=== PATIENT | male | born 1935 | race Caucasian/White ===

== ENCOUNTER 2018-01-20 16:49 | Inpatient (IN) ==
[2018-01-20] MEDS ORDERED: *HR* Dextrose 50 % in Water (Syg) 50 ML SYRINGE IVP PRN (19:52)
[2018-01-20] MEDS ORDERED: Dextrose Gel 15 GM PO PRN ×2 (19:52)
[2018-01-20] MEDS ORDERED: D5% in Water 1,000 ML IVC PRN (19:52)
[2018-01-20] MEDS: Insulin LISPRO 300 UNITS/3 ML VIAL SQ SCH (22:23)
[2018-01-21 07:20] LABS: Calcium 8.6 mg/dL (8.6-10.3); Potassium 4.9 mEq/L (3.5-5.1)
[2018-01-21 08:04] LABS: Basophils % 0.3 %; Eosinophils # 0.2 K/mcL (0.0-0.6); Eosinophils % 4.2 %; Hematocrit 27.2 % (37.5-50.1); Hemoglobin 8.6 g/dL (12.9-16.9); Immature Granulocytes % 0.6 % (0-4); Lymphocytes # 0.3 K/mcL (0.6-4.6); Lymphocytes % 7.6 %; Mean Corpuscular HGB Conc 31.6 g/dL (31.6-35.5); Mean Corpuscular Hemoglobin 30.6 pg (28.0-33.3); Mean Corpuscular Volume 96.8 fL (83.0-100.0); Mean Platelet Volume 11.4 fL (9.4-12.4); Monocytes # 0.3 K/mcL (0.0-1.3); Monocytes % 8.1 %; Platelet Count 138 K/mcL (140-400); Red Blood Count 2.81 M/mcL (4.19-5.50); Red Cell Distribution Width 16.2 % (11.5-14.5); Segmented Neutrophils % 79.2 %
[2018-01-21 08:05] LABS: INR 1.1; Prothrombin Time 12.1 Seconds (9.4-12.1)
[2018-01-21 08:07] LABS: Activated Partial Thrombo Time 28.9 Seconds (26.0-36.0)
[2018-01-21] MEDS: Insulin LISPRO 300 UNITS/3 ML VIAL SQ SCH ×4 (09:06→20:12)
[2018-01-21 09:09] LABS: Neutrophils # 2.9 K/mcL (1.6-8.9)
[2018-01-21] MEDS: Vitamin B Complex/Vit C/Vit E 1 EACH TABLET PO SCH (09:22)
[2018-01-21] MEDS: *HR* Amiodarone 200 MG TABLET PO SCH (09:22)
[2018-01-21] MEDS: Bumetanide 1 MG TABLET PO SCH ×2 (09:22→18:28)
[2018-01-21] MEDS: Diltiazem CD (24hr) 240 MG CAPSULE PO SCH (09:22)
[2018-01-21] MEDS: Folic Acid 1 MG TABLET PO SCH (09:22)
--- NOTE | 2018-01-21 13:41 | Internal Med History&Physical ---
Date of Encounter: 01/21/18 Time of Encounter: 13:21 Assessment and Plan (1) Hypertension Current visit: Yes Status: Chronic Stable and controlled with current medication. Monitor blood pressure. Qualifiers: Hypertension type: essential hypertension Qualified Code(s): I10 - Essential (primary) hypertension (2) Atrial fibrillation Current visit: Yes Status: Chronic Regular rate and rhythm. Monitor Qualifiers: Atrial fibrillation type: unspecified Qualified Code(s): I48.91 - Unspecified atrial fibrillation (3) CKD (chronic kidney disease) stage 4, GFR 15-29 ml/min Current visit: Yes Status: Chronic Creatinine 2.07. Will monitor labs (4) Acute blood loss anemia Current visit: Yes Status: Acute Hemoglobin 8.6 today. Recently I received last transfusion on January 14. Patient is symptomatic. Will transfuse one more unit today. (5) Systolic heart failure Current visit: No Status: Acute Monitor for decompensation. Qualifiers: Heart failure chronicity: acute Qualified Code(s): I50.21 - Acute systolic (congestive) heart failure Internal Medicine - H&P: HPI Admitted From: Intrahospital Transfer Plans for Post Hospital Care: Home History of present illness: Mr. Engle is a 82 year old male from [facility] after an admission for a G.I. bleed. Patient had an irregular heart rhythm without pulse shortly after arrival in ICU. Patient was coded in cardiac arrest at 3 different episodes. Patient given 6 unit of blood. Was also treated with antibiotics for Pseudomonas pneumonia echocardiogram shows ejection fraction a 50% with some mild LV systolic dysfunction. past medical history includes: NSTEMI, acute decompensated heart failure, see KD stage for work, hypertension, respiratory failure, acute coronary syndrome, a fib, systolic heart failure, systemic inflammatory response syndrome, diabetes type II, BPH, urinary retention, pneumonia, ischemic cardiomyopathy, COPD, cardiac arrest, G.I. bleed , CAD, metabolic alkalosis, arrhythmia, renal mass, duodenal ulcer. Completed [place] obsessive pain. Cardiac arrest is reported as likely secondary to severe blood loss or hypokalemia. Will be continue twice today. Transfuse last unit of blood was given on . Patient colonoscopy which showed 20 mm polyp in sigmoid colon. Patient was recommended to the [facility] on Plavix for at least one month. Will follow up with cardiology. Currently complaining of increased fatigue slight shortness of breath. On oxygen per nasal cannula at 100% O2. Hemoglobin 8.6 today. Patient here for overall deconditioning for physical therapy and medical management. To follow up with cardiology. To follow up with Dr Zabala, urology in 2-3 weeks for possible voiding trial. has karan. To follow up with Rafael[facility] durbin urology in 2 weeks and repeat EGD in 4 weeks. Past Med Surg Social Fam HX - Past Medical History Medical history: arthritis, atrial fibrillation, cancer, cardiomyopathy, CHF, COPD, coronary artery disease, diabetes, GERD, GI bleed, hyperlipidemia, hypertension, myocardial infarction, peripheral artery disease Psychiatric history: anxiety - Past Surgical History Surgical History: angioplasty/stent, orthopedic, other, other - Social History Smoking Status: Former smoker Smokeless Tobacco Status: No Alcohol use: none Drug use: none - Family History Mother Living Status: Hx Family Cardiac Disorders: Yes Father Adopted: Agar: jarocho engle Family Member Ethnicity: Non- Living Status: Age at : 86 Cause of : CHF Hx Family Cardiac Disorders: Yes Hx Family Respiratory Disorders: No Hx Family Cancer: No Hx Family GI Disorders: Yes Hx Family Genitourinary Disorders: No Hx Family Endocrine Disorder: Yes Hx Family Musculoskeletal Disorders: No Hx Family Neuromuscular Disorders: No Hx Family Neurologic Disorders: No Hx Family HEENT Disorders: No Hx Family Autoimmune Disorders: No Hx Family Reproductive Disorders: No Hx Family Psychosocial Disorders: No Hx Family Medical Disorders: No Internal Medicine - H&P: Meds Albuterol Neb [Proventil Neb] 2.5 mg IH Q4-6H PRN 12/31/17 [History] Albuterol Sulfate [Proair Hfa] 1 puff IH DAILY PRN 12/31/17 [History] Atorvastatin [Lipitor] 40 mg PO HS 12/31/17 [History] Bisacodyl [Woman's Laxative] 5 mg PO DAILY PRN 12/31/17 [History] Calcium Carbonate [Calcium] 1,000 mg PO Q4H PRN 12/31/17 [History] Cholecalciferol (Vitamin D3) [Vitamin D3] 50,000 unit PO TH 12/31/17 [History] Docusate [Colace] 200 mg PO BID PRN 12/31/17 [History] Loperamide [Imodium] 2 mg PO Q6H PRN 12/31/17 [History] Metoprolol Tartrate [Lopressor] 50 mg PO BID 12/31/17 [History] Tamsulosin [Flomax] 0.4 mg PO DAILY 12/31/17 [History] Vitamin B Complex [B Complex] 1 tab PO DAILY 12/31/17 [History] Zolpidem [Ambien] 5 mg PO HS 12/31/17 [History] Bumetanide [Bumex] 1 mg PO BIDDIURETIC #60 tablet 01/02/18 [Rx] Amiodarone [Cordarone] 200 mg PO DAILY #30 tablet 01/20/18 [Rx] Diltiazem CD (24hr) [Cardizem CD] 240 mg PO DAILY #30 cap.er.24h 01/20/18 [Rx] Folic Acid 1 mg PO DAILY #30 tablet 01/20/18 [Rx] GuaiFENesin ER [Mucinex] 600 mg PO BID #60 tbbp.12hr 01/20/18 [Rx] Pantoprazole Sodium 40 mg PO BID #60 tablet.dr 01/20/18 [Rx] Sucralfate [Carafate] 1 gm PO ACHS #120 udc 01/20/18 [Rx] 3 Allergy/AdvReac Type Severity Reaction Status Date / Time Beta-Blockers AdvReac See Verified 01/06/18 15:36 (Beta-Adrenergic Bloc Comments codeine AdvReac Nausea Verified 01/06/18 15:36 All Systems PM: A 10-system review of systems was performed and is negative for pertinent findings except as documented above in the HPI. - Constitutional Constitutional: fatigue, no chills, no fever(s), no night sweats - EENT Eyes: no change in vision, no discharge, no pain, no photophobia Ears: no ear discharge, no ear pain, no tinnitus Nose, mouth and throat: no dysphagia, no nasal discharge, no neck pain, no sore throat - Cardiovascular Cardiovascular ROS IM: edema, no chest pain, no diaphoresis, no dyspnea, no lightheadedness, no palpitations, no syncope - Respiratory Respiratory: no cough, no dyspnea, no wheezing, no excessive phlegm production Additional comments: SOB with exertion. - Gastrointestinal Gastrointestinal: no abdominal pain, no diarrhea, no hematemesis, no hematochezia, no melena, no nausea, no vomiting - Musculoskeletal Musculoskeletal ROS IM: no numbness, no tingling - Integumentary Integumentary IM: no rash, no unusual bruising - Neurological Neurological ROS: no confusion, no convulsions, no focal weakness, no numbness, no tingling, no tremor(s) - Hematologic/Lymphatic Hematologic/Lymphatic: no easy bruising - Constitutional Vitals: Temp Pulse Resp BP Pulse Ox 98.6 F 78 16 99/60 100 01/21/18 11:23 01/21/18 11:23 01/21/18 11:23 01/21/18 11:23 01/21/18 11:23 General appearance: Present: A&O X 3, pleasant, no acute distress, answers questions appropriately - Head Head exam: Present: atraumatic, normocephalic - Eye Eye exam: Present: PERRL, conjuntiva pink, sclera anicteric Pupils: Present: PERRL - Neck Neck exam general surgery: Present: supple, trachea midline. Absent: lymphadenopathy - Respiratory Respiratory exam: Present: CTAB. Absent: accessory muscle use, rales, rhonchi, wheezes - Cardiovascular Cardiovascular exam: Present: RRR, +S1, +S2. Absent: diastolic murmur, gallop, rubs, systolic murmur - GI/Abdominal GI/Abdominal exam: Present: normal bowel sounds, soft, no peritoneal signs. Absent: distended, tenderness - Extremities Exam Extremities exam: Present: warm, radial pulses palpable and symmetrical. Absent : calf tenderness, cyanotic, pedal edema Additional comments: bilat upper extremity edema with weeping on right arm. prakash conn biljeevan LE. - Neurological Exam Neurological exam: Present: CN II-XII intact, oriented X3, no focal deficits. Absent: pronater drift, facial droop, speech deficit - Skin Skin exam: Present: dry, intact Internal Med - H&P Results - Labs CBC & Chem 7: 01/21/18 06:55 01/21/18 06:55 Labs: Short CBC 01/21/18 Range/Units 06:55 WBC 3.6 L (4.3-11.1) K/mcL Hgb 8.6 L (12.9-16.9) g/dL Hct 27.2 L (37.5-50.1) % Plt Count 138 L (140-400) K/mcL Neutrophils # 2.9 (1.6-8.9) K/mcL BMP 01/21/18 06:55 Sodium 136 Potassium 4.9 Chloride 103 Carbon Dioxide 31 H BUN 31 H Creatinine 2.07 H Glucose 97 Calcium 8.6 - VTE Documentation of Mechanical Device: Graduated compression elastic hosiery
[2018-01-21] MEDS ORDERED: Bumetanide 1 MG/4 ML VIAL IVP ONE ×2 (14:02→22:30)
[2018-01-21] MEDS: Albuterol 2.5 MG/3 ML NEBULIZER IH PRN ×3 (15:29→23:36)
[2018-01-21] MEDS ORDERED: 0.9 % Sodium Chloride 250 ML ONE (18:03)
[2018-01-22 07:26] LABS: Eosinophils # 0.1 K/mcL (0.0-0.6); Eosinophils % 3.7 %; Hemoglobin 9.3 g/dL (12.9-16.9); Immature Granulocytes % 0.3 % (0-4); Lymphocytes # 0.4 K/mcL (0.6-4.6); Lymphocytes % 9.5 %; Mean Corpuscular HGB Conc 32.1 g/dL (31.6-35.5); Mean Corpuscular Hemoglobin 30.9 pg (28.0-33.3); Mean Corpuscular Volume 96.3 fL (83.0-100.0); Monocytes # 0.3 K/mcL (0.0-1.3); Monocytes % 8.2 %; Platelet Count 131 K/mcL (140-400); Red Blood Count 3.01 M/mcL (4.19-5.50); Red Cell Distribution Width 15.9 % (11.5-14.5); Segmented Neutrophils % 78.3 %
[2018-01-22 07:47] LABS: Albumin 2.9 g/dL (3.5-5.7); Albumin/Globulin Ratio 1.5 (1.1-2.2); Bilirubin,Total 0.6 mg/dL (0.3-1.0); Calcium 8.5 mg/dL (8.6-10.3); Potassium 4.2 mEq/L (3.5-5.1); Total Protein 4.9 g/dL (6.4-8.9)
[2018-01-22] MEDS: Albuterol 2.5 MG/3 ML NEBULIZER IH PRN (08:26)
[2018-01-22] MEDS: Bumetanide 1 MG TABLET PO SCH ×2 (08:56→18:46)
[2018-01-22] MEDS: *HR* Amiodarone 200 MG TABLET PO SCH (08:56)
[2018-01-22] MEDS: Diltiazem CD (24hr) 240 MG CAPSULE PO SCH (08:57)
[2018-01-22] MEDS: Insulin LISPRO 300 UNITS/3 ML VIAL SQ SCH ×4 (08:57→21:17)
[2018-01-22] MEDS: Folic Acid 1 MG TABLET PO SCH (08:57)
[2018-01-22] MEDS: Vitamin B Complex/Vit C/Vit E 1 EACH TABLET PO SCH (08:57)
--- NOTE | 2018-01-22 17:12 | Internal Med Progress Note ---
Date of Encounter: 01/22/18 Time of Encounter: 15:45 - Assessment and plan (1) NSTEMI (non-ST elevated myocardial infarction) Current Visit: No Status: Acute Assessment and plan: Clinically stable. (2) CKD (chronic kidney disease) Current Visit: No Status: Chronic Assessment and plan: Clinically stable. Qualifiers: Chronic kidney disease stage: stage 4 (severe) Qualified Code(s): N18.4 - Chronic kidney disease, stage 4 (severe) (3) Acute respiratory failure Current Visit: No Status: Resolved Assessment and plan: Seems stable and we are evaluating the possibility of BiPAP at home. For now, he will be continued on BiPAP here, overnight, and when necessary during the day times. Qualifiers: Respiratory failure complication: hypoxia Qualified Code(s): J96.01 - Acute respiratory failure with hypoxia (4) Hypertension Current Visit: Yes Status: Chronic Assessment and plan: Stable with occasional moderate elevations. We will continue to follow. Qualifiers: Hypertension type: essential hypertension Qualified Code(s): I10 - Essential (primary) hypertension (5) Atrial fibrillation Current Visit: Yes Status: Chronic Assessment and plan: Malalignment sinus rhythm. Will follow. Qualifiers: Atrial fibrillation type: paroxysmal Qualified Code(s): I48.0 - Paroxysmal atrial fibrillation (6) Type 2 diabetes mellitus Current Visit: No Status: Chronic Assessment and plan: Apparently due to steroids and/or stress with recent hospitalization as patient and are unaware of diagnosis. Will need education, if he continues to have issues. We will follow and use sliding scale, etc. Qualifiers: Diabetes mellitus senior living insulin use: without senior living use Diabetes mellitus complication status: with unspecified complications Qualified Code(s) : E11.8 - Type 2 diabetes mellitus with unspecified complications (7) DVT prophylaxis Current Visit: No Status: Acute Assessment and plan: Using compression stockings, only, in view of his recent GI bleeding. (8) Gastrointestinal bleeding Current Visit: No Status: Acute Assessment and plan: This is apparently from gastroduodenal duodenal ulcers as well as esophagitis. He is on acid suppression and will be maintained on same. Given his decreased intake and difficulties with swallowing, speech therapy discussed the possibility of using pureed diet which she was pleased to try. Thus, he is on a pureed diet. Hopefully, his dysphagia will improve over time, especially with acid suppression. Qualifiers: GI bleed type/associated pathology: duodenal ulcer Qualified Code(s): K26.4 - Chronic or unspecified duodenal ulcer with hemorrhage - Time Spent With Patient 25 - 35 minutes - Subjective Interval history: Patient is still experiencing shortness of breath and weakness. He is somewhat better than yesterday. He has no lightheadedness or dizziness. He feels like he was worn out with therapy. I informed him and his that we would need to proceed with therapy and that we would not try not to drive him to hard, especially as he regains some improvement in his breathing, etc. I spoke with both of them at length as well as nursing and respiratory therapy about his medication regimen from the standpoint of aerosols, meter dose inhaler , etc. I informed him he was able to have the MDI at the bedside, from my standpoint. We reviewed his catheter and this is to be maintained in place until seen by his urologist in about 2 or 3 weeks. Patient has no complaint of chest discomfort, dyspnea, orthopnea, palpitations, nausea or vomiting, constipation or diarrhea, other changes in bowel habits, difficulty with urination, rash or itching, or other new complaints, except as mentioned above. Review of systems is otherwise unremarkable. - Constitutional Vitals: Temp Pulse Resp BP Pulse Ox 97.5 F L 55 22 100/60 100 01/22/18 11:55 01/22/18 11:55 01/22/18 11:55 01/22/18 11:55 01/22/18 11:55 General appearance: Present: A&O X 3, pleasant, no acute distress, answers questions appropriately Exam: Examination: (Except as mentioned above): General: In no apparent distress. Alert and oriented 3. Nondiaphoretic. Head: Atraumatic and normocephalic. Respiratory: No use of accessory muscles. He still has sonorous rhonchi with increased expiratory phase but not much in the way of wheezing. Normal airflow. Cardiovascular: Regular rate and rhythm without murmur appreciated. Abdomen: Bowel sounds are normal. No hepatosplenomegaly mass or tenderness appreciated. Obese and therefore difficult to palpate deeply. Patient is examined upright in chair and this also limits exam. Extremities: No cyanosis clubbing or edema. Skin: Warm and non-diaphoretic with no new lesions noted. Internal Medicine: Result - Labs CBC & Chem 7: 01/22/18 07:15 01/22/18 07:15 Labs: Short CBC 01/22/18 Range/Units 07:15 WBC 3.8 L (4.3-11.1) K/mcL Hgb 9.3 L (12.9-16.9) g/dL Hct 29.0 L (37.5-50.1) % Plt Count 131 L (140-400) K/mcL Neutrophils # 3.0 (1.6-8.9) K/mcL BMP 01/22/18 07:15 Sodium 137 Potassium 4.2 Chloride 103 Carbon Dioxide 29 BUN 32 H Creatinine 1.95 H Glucose 88 Calcium 8.5 L Liver Function 01/22/18 Range/Units 07:15 Total Bilirubin 0.6 (0.3-1.0) mg/dL AST 18 (13-39) Units/L ALT 24 (7-52) Units/L Alkaline Phosphatase 75 (34-104) Units/L Albumin 2.9 L (3.5-5.7) g/dL - ABG Interpretation ABG results: PT/INR, D-dimer PT 12.1 Seconds (9.4-12.1) 01/21/18 06:55 - VTE Documentation of Mechanical Device: Graduated compression elastic hosiery Consult Discharge Plan - Plan Referrals: Des Gaona, MANAGER BODY [Primary Care Provider] -
[2018-01-22] MEDS: Albuterol 2.5 MG/3 ML NEBULIZER IH SCH (20:19)
[2018-01-23] MEDS: Albuterol 2.5 MG/3 ML NEBULIZER IH SCH ×6 (00:30→22:04)
[2018-01-23] MEDS: Insulin LISPRO 300 UNITS/3 ML VIAL SQ SCH ×4 (08:45→21:38)
[2018-01-23] MEDS: Bumetanide 1 MG TABLET PO SCH ×2 (08:46→17:13)
[2018-01-23] MEDS: Folic Acid 1 MG TABLET PO SCH (08:46)
[2018-01-23] MEDS: *HR* Amiodarone 200 MG TABLET PO SCH (08:46)
[2018-01-23] MEDS: Vitamin B Complex/Vit C/Vit E 1 EACH TABLET PO SCH (08:46)
[2018-01-23] MEDS: Diltiazem CD (24hr) 240 MG CAPSULE PO SCH (08:47)
--- NOTE | 2018-01-23 09:35 | Internal Med Progress Note ---
Date of Encounter: 01/23/18 Time of Encounter: 08:30 - Assessment and plan (1) NSTEMI (non-ST elevated myocardial infarction) Current Visit: No Status: Acute Assessment and plan: Clinically stable. (2) CKD (chronic kidney disease) Current Visit: No Status: Chronic Assessment and plan: Clinically stable to slightly improved. Qualifiers: Chronic kidney disease stage: stage 4 (severe) Qualified Code(s): N18.4 - Chronic kidney disease, stage 4 (severe) (3) Acute respiratory failure Current Visit: No Status: Resolved Assessment and plan: Seems stable and he is symptomatically improved, as above. I discussed with respiratory therapy and we will investigate the ability to get him certified for BiPAP at home, should he need this. Qualifiers: Respiratory failure complication: hypoxia Qualified Code(s): J96.01 - Acute respiratory failure with hypoxia (4) Hypertension Current Visit: Yes Status: Chronic Assessment and plan: He still has occasional moderate elevations. We will continue to follow. Qualifiers: Hypertension type: essential hypertension Qualified Code(s): I10 - Essential (primary) hypertension (5) Atrial fibrillation Current Visit: Yes Status: Chronic Assessment and plan: He is still maintaining sinus rhythm. Will follow. Qualifiers: Atrial fibrillation type: paroxysmal Qualified Code(s): I48.0 - Paroxysmal atrial fibrillation (6) Type 2 diabetes mellitus Current Visit: No Status: Chronic Assessment and plan: Mild and will continue to follow. Apparently, related to steroids.. Qualifiers: Diabetes mellitus longterm insulin use: without laborer drying department use Diabetes mellitus complication status: with unspecified complications Qualified Code(s) : E11.8 - Type 2 diabetes mellitus with unspecified complications (7) DVT prophylaxis Current Visit: No Status: Acute Assessment and plan: Using compression stockings, only, in view of his recent GI bleeding. (8) Gastrointestinal bleeding Current Visit: No Status: Acute Assessment and plan: Due to esophagitis, gastric and duodenal ulcers. Clinically, currently stable on acid suppression. Qualifiers: GI bleed type/associated pathology: duodenal ulcer Qualified Code(s): K26.4 - Chronic or unspecified duodenal ulcer with hemorrhage (9) Anemia Current Visit: Yes Status: Acute Assessment and plan: Secondary to GI blood loss. Currently, stable and we will follow in terms of vital signs, clinically, and serial labs. Qualifiers: Anemia type: other cause Other causes of anemia: acute posthemorrhagic Qualified Code(s): D62 - Acute posthemorrhagic anemia (10) COPD (chronic obstructive pulmonary disease) Current Visit: Yes Status: Acute Assessment and plan: This is not in his current problem list but I have added as he has a history of COPD, home use of BiPAP symptomatically, and does carry COPD exacerbation in his past history in this system. Qualifiers: COPD type: unspecified COPD Qualified Code(s): J44.9 - Chronic obstructive pulmonary disease, unspecified - Time Spent With Patient 25 - 35 minutes - Subjective Interval history: Patient is feeling generally better. He is still dyspneic, especially with exertion, but is pleased with his progress. He denies chest discomfort, other acute issues. He is pleased with the change in his medications and the fact that he has his albuterol inhaler at his bedside. Patient has no complaint of chest discomfort, dyspnea, orthopnea, palpitations, nausea or vomiting, constipation or diarrhea, other changes in bowel habits, difficulty with urination, rash or itching, or other new complaints, except as mentioned above. Review of systems is otherwise unremarkable. - Constitutional Vitals: Temp Pulse Resp BP Pulse Ox 97.6 F 70 14 115/88 96 01/23/18 07:18 01/23/18 07:18 01/23/18 07:18 01/23/18 07:18 01/23/18 07:18 General appearance: Present: A&O X 3, pleasant, no acute distress, answers questions appropriately Exam: Examination: (Except as mentioned above): General: In no apparent distress. Alert and oriented 3. Nondiaphoretic. Head: Atraumatic and normocephalic. Respiratory: No use of accessory muscles. He still has diffuse sonorous rhonchi and increased expiratory phase but this is mild and no wheezes are heard , at this time. (He is examined on BiPAP.). Normal airflow. Cardiovascular: Regular rate and rhythm without murmur appreciated. Heart sounds are distant. Abdomen: Bowel sounds are normal. No hepatosplenomegaly mass or tenderness appreciated. Obese and therefore difficult to palpate deeply. Extremities: No cyanosis clubbing or change in edema edema. He still has mild left upper extremity and moderate to moderately severe right upper extremity edema. There is no erythema or sign of cellulitis. He has no lower extremity edema of significance. Skin: Warm and non-diaphoretic with no new lesions noted. Internal Medicine: Result - Labs CBC & Chem 7: 01/22/18 07:15 01/22/18 07:15 - ABG Interpretation ABG results: PT/INR, D-dimer PT 12.1 Seconds (9.4-12.1) 01/21/18 06:55 - VTE Documentation of Mechanical Device: Graduated compression elastic hosiery Consult Discharge Plan - Plan Referrals: Des Gaona, SHOWCASE MAKER [Primary Care Provider] -
[2018-01-24] MEDS: Albuterol 2.5 MG/3 ML NEBULIZER IH SCH ×6 (01:00→20:42)
[2018-01-24] MEDS: Insulin LISPRO 300 UNITS/3 ML VIAL SQ SCH ×4 (07:52→20:46)
[2018-01-24] MEDS: *HR* Amiodarone 200 MG TABLET PO SCH (08:04)
[2018-01-24] MEDS: Folic Acid 1 MG TABLET PO SCH (08:04)
[2018-01-24] MEDS: Diltiazem CD (24hr) 240 MG CAPSULE PO SCH (08:04)
[2018-01-24] MEDS: Vitamin B Complex/Vit C/Vit E 1 EACH TABLET PO SCH (08:05)
[2018-01-24] MEDS: Bumetanide 1 MG TABLET PO SCH ×2 (08:05→16:40)
--- NOTE | 2018-01-24 11:42 | Internal Med Progress Note ---
Date of Encounter: 01/24/18 Time of Encounter: 11:39 - Assessment and plan (1) Acute decompensated heart failure Current Visit: Yes Status: Acute Assessment and plan: Patient appears relaxed while at rest but continues to have complaints of dyspnea during exertion of greater than 20 feet. Lungs are diminished throughout lower [place] and patient with complaints of a chronic dry cough. We will obtain a chest x-ray for evaluation. Oximetry remains greater than 90%. Noted moderate amount of generalized edema. Patient continues in sinus rhythm at 60 to 70s. No noted ectopy. We will continue with current medications. Will continue with therapy (2) CKD (chronic kidney disease) Current Visit: Yes Status: Chronic Assessment and plan: No acute issues. Patient's creatinine is 1.95. Noted moderate amount of generalized edema. We will continue with daily weights. We will continue to monitor serial labs. Qualifiers: Chronic kidney disease stage: stage 4 (severe) Qualified Code(s): N18.4 - Chronic kidney disease, stage 4 (severe) (3) Hypertension Current Visit: Yes Status: Chronic Assessment and plan: No acute issues. Vital signs are stable. Patient's blood pressure is greater than 1:30 systolic on right, but noted large variance of blood pressure 1 obtained from the left arm. Systolic blood pressure was greater than 80 on the left. We will continue with current medications. Qualifiers: Hypertension type: essential hypertension Qualified Code(s): I10 - Essential (primary) hypertension - Time Spent With Patient less than 15 minutes - Subjective Interval history: Patient appears relaxed and currently denies any discomforts or palpitations. Patient does state he continues to have slight dyspnea when ambulating greater than 20 feet. Respiratory effort appears relaxed while at rest. Patient also complains of a slight nonproductive cough, which he states increases in frequency when he takes a deep breath or was ambulating. Patient denies any fever or chills. - Constitutional Vitals: Temp Pulse Resp BP Pulse Ox 98.3 F 73 18 166/62 100 01/24/18 11:18 01/24/18 11:18 01/24/18 11:18 01/24/18 11:18 01/24/18 11:18 General appearance: Present: A&O X 3, pleasant, no acute distress, answers questions appropriately - Head Head exam: Present: atraumatic, normocephalic - Eye Eye exam: Present: PERRL, conjuntiva pink, sclera anicteric Pupils: Present: PERRL - Neck Neck exam general surgery: Present: supple, trachea midline. Absent: lymphadenopathy - Respiratory Respiratory exam: Present: CTAB. Absent: accessory muscle use, rales, rhonchi, wheezes Additional comments: Lungs are clear throughout upper [place] but diminished throughout basophils. Patient using BiPAP at night. - Cardiovascular Cardiovascular exam: Present: diastolic murmur, RRR, +S1, +S2, systolic murmur. Absent: gallop, rubs Additional comments: Noted systolic murmur left sternal border, 3/6. Patient with moderate generalized edema. Reports that drained vital signs patient has significant variance and blood pressure when checking his vital signs on both his right and left arm. Patient's left arm showed a systolic between 80 and 90 and his right arm showed a systolic greater than 130 - GI/Abdominal GI/Abdominal exam: Present: normal bowel sounds, soft, no peritoneal signs. Absent: distended, tenderness - Extremities Exam Extremities exam: Present: warm, radial pulses palpable and symmetrical. Absent : calf tenderness, cyanotic, pedal edema - Neurological Exam Neurological exam: Present: CN II-XII intact, oriented X3, no focal deficits. Absent: pronater drift, facial droop, speech deficit - Skin Skin exam: Present: dry, intact Internal Medicine: Result - Labs CBC & Chem 7: 01/22/18 07:15 01/22/18 07:15 - ABG Interpretation ABG results: PT/INR, D-dimer PT 12.1 Seconds (9.4-12.1) 01/21/18 06:55 - VTE Documentation of Mechanical Device: Graduated compression elastic hosiery Consult Discharge Plan - Plan Referrals: Des Gaona, CUSTOMER PROJECT MANAGER [Primary Care Provider] -
[2018-01-25] MEDS: Albuterol 2.5 MG/3 ML NEBULIZER IH SCH ×6 (00:42→22:48)
[2018-01-25] MEDS: Insulin LISPRO 300 UNITS/3 ML VIAL SQ SCH ×4 (08:01→22:47)
[2018-01-25] MEDS: Diltiazem CD (24hr) 240 MG CAPSULE PO SCH (08:41)
[2018-01-25] MEDS: Folic Acid 1 MG TABLET PO SCH (08:41)
[2018-01-25] MEDS: *HR* Amiodarone 200 MG TABLET PO SCH (08:41)
[2018-01-25] MEDS: Bumetanide 1 MG TABLET PO SCH ×3 (08:41→22:46)
[2018-01-25] MEDS: Vitamin B Complex/Vit C/Vit E 1 EACH TABLET PO SCH (08:41)
--- NOTE | 2018-01-25 19:39 | Internal Med Progress Note ---
Date of Encounter: 01/25/18 Time of Encounter: 13:00 - Assessment and plan (1) Acute decompensated heart failure Current Visit: Yes Status: Acute Assessment and plan: -[id number] BID increased to 2mg -no net neg fluid output, will await how the bumex increase will do tomorrow -might need to institute fluid restrictions tomorrow Reviewed chext x-ray FINDINGS: The cardiomediastinal contours are stable with atherosclerotic aortic calcification and cardiomegaly. There is minor blunting of the left costophrenic angle as on the previous exam which may be related to minor pleural scarring. No significant pleural fluid is seen on either side. No evidence of focal consolidation or overt pulmonary edema. Surgical clips again seen overlying the base of the neck bilaterally. (2) CKD (chronic kidney disease) Current Visit: Yes Status: Chronic Assessment and plan: -unknown status, but last known levels of Cr at 1.95 - CKD4 labs tomorrow Qualifiers: Chronic kidney disease stage: stage 4 (severe) Qualified Code(s): N18.4 - Chronic kidney disease, stage 4 (severe) (3) Hypertension Current Visit: Yes Status: Chronic Assessment and plan: stable, no changes, will monitor tomorrow -goal <140/90 with elevation today Qualifiers: Hypertension type: essential hypertension Qualified Code(s): I10 - Essential (primary) hypertension (4) Code status needs review Current Visit: Yes Status: Acute Assessment and plan: prolonged discussion with the family that wishes for resuscitation can be changed according to the pt's wishes. He explained that his prior experience didn't prove fruitful in regard to a quality of life outcome. I explained that outcomes deminish with many co-morbidities as well after multiple prior codes. He indicated that if he is found without pulse/hear activity, to NOT perform resuscitation. This was also explained to him and his next to him. They both agreed to this code status. An order to change his code to DNR-CCA was performed. Tele was removed. Pt was hemdynamically stable - Time Spent With Patient Greater than 35 minutes (Code status discussion was carried today) - Subjective Interval history: coomfortable, no active issues beside a cough today - Constitutional Vitals: Temp Pulse Resp BP Pulse Ox 98.0 F 66 18 131/68 98 01/25/18 19:28 01/25/18 19:28 01/25/18 19:28 01/25/18 19:28 01/25/18 19:28 General appearance: Present: A&O X 3, pleasant, no acute distress, answers questions appropriately - Head Head exam: Present: atraumatic, normocephalic - Eye Eye exam: Present: PERRL, conjuntiva pink, sclera anicteric Pupils: Present: PERRL - Neck Neck exam general surgery: Present: supple, trachea midline. Absent: lymphadenopathy - Respiratory Respiratory exam: Present: CTAB. Absent: rales, rhonchi, wheezes - Cardiovascular Cardiovascular exam: Present: RRR, +S1, +S2. Absent: gallop, rubs - GI/Abdominal GI/Abdominal exam: Present: normal bowel sounds, soft, no peritoneal signs. Absent: distended, tenderness - Extremities Exam Extremities exam: Present: pedal edema, warm, radial pulses palpable and symmetrical. Absent: calf tenderness, cyanotic Additional comments: +2 pitting edema bilateral lower extremity trace pitting in the upper extremities - Neurological Exam Neurological exam: Present: CN II-XII intact, oriented X3, no focal deficits. Absent: pronater drift, facial droop, speech deficit - Skin Skin exam: Present: dry, intact Internal Medicine: Result - Labs CBC & Chem 7: 01/22/18 07:15 01/22/18 07:15 - ABG Interpretation ABG results: PT/INR, D-dimer PT 12.1 Seconds (9.4-12.1) 01/21/18 06:55 - Impressions Impressions Chest X-Ray 01/25/18 06:00 IMPRESSION: Stable chest. D/ / Shoaib Hernandez MD / Shoaib Hernandez MD Interpreting Provider: Shoaib Hernandez MD - VTE Documentation of Mechanical Device: Graduated compression elastic hosiery Consult Discharge Plan - Plan Referrals: Des Gaona, [employer] OPERATOR [Primary Care Provider] -
[2018-01-26] MEDS: Albuterol 2.5 MG/3 ML NEBULIZER IH SCH ×6 (00:54→22:29)
[2018-01-26] MEDS: Insulin LISPRO 300 UNITS/3 ML VIAL SQ SCH ×2 (08:03→12:01)
[2018-01-26 08:38] LABS: Calcium 8.3 mg/dL (8.6-10.3); Potassium 3.6 mEq/L (3.5-5.1)
[2018-01-26] MEDS: Diltiazem CD (24hr) 240 MG CAPSULE PO SCH (08:56)
[2018-01-26] MEDS: Vitamin B Complex/Vit C/Vit E 1 EACH TABLET PO SCH (08:56)
[2018-01-26] MEDS: Bumetanide 1 MG TABLET PO SCH ×2 (08:57→18:32)
[2018-01-26] MEDS: Folic Acid 1 MG TABLET PO SCH (08:57)
[2018-01-26] MEDS: *HR* Amiodarone 200 MG TABLET PO SCH (08:57)
--- NOTE | 2018-01-26 13:52 | Internal Med Progress Note ---
Date of Encounter: 01/26/18 Time of Encounter: 13:50 - Assessment and plan (1) Acute decompensated heart failure Current Visit: Yes Status: Acute Assessment and plan: -[id number] BID increased to 2mg 01/25/18 see anasarca for plan on diuresis Reviewed chext x-ray FINDINGS: The cardiomediastinal contours are stable with atherosclerotic aortic calcification and cardiomegaly. There is minor blunting of the left costophrenic angle as on the previous exam which may be related to minor pleural scarring. No significant pleural fluid is seen on either side. No evidence of focal consolidation or overt pulmonary edema. Surgical clips again seen overlying the base of the neck bilaterally. (2) CKD (chronic kidney disease) Current Visit: Yes Status: Chronic Assessment and plan: -unknown status, but last known levels of Cr at 1.95 - CKD4 labs tomorrow Qualifiers: Chronic kidney disease stage: stage 4 (severe) Qualified Code(s): N18.4 - Chronic kidney disease, stage 4 (severe) (3) Hypertension Current Visit: Yes Status: Chronic Assessment and plan: stable, no changes, will monitor tomorrow -goal <140/90 with elevation today Qualifiers: Hypertension type: essential hypertension Qualified Code(s): I10 - Essential (primary) hypertension (4) Toe pain Current Visit: Yes Status: Acute Assessment and plan: ?gout, tylenol X1 no pain today, will monitor (BIg left toe) (5) Anasarca Current Visit: Yes Status: Acute Assessment and plan: upper extremities and lower extremity swelling, urine output was down in the past two days obtained Cr which was mildly up 1.9 to 2 INcreased bumex to 2mg 01/25/18 with urine output increased will continue to monitor DAILY LABS, to monitor Cr -fluid resitriction to 1.5L daily -diet changed to cardiac diet -no diabetic diet recommendation at this time -will repeat chest X-ray tomorrow to monitor hypoxia status Unknown dry wt, but would continue to monitor cr as a marker for diuresis Clinically, he might continue to present with edema thus if Cr is stable, would recommend increasing bumex if Urine output diminishs again -continue to have russo for accurate urine output measurement - Time Spent With Patient 25 - 35 minutes - Subjective Interval history: comfortable no active issues beside a cough today per nursing, worried about right upper extremity skin oozing and continued edema - Constitutional Vitals: Temp Pulse Resp BP Pulse Ox 97.6 F 73 16 123/54 99 01/26/18 06:53 01/26/18 06:53 01/26/18 06:53 01/26/18 06:53 01/26/18 06:53 General appearance: Present: A&O X 3, pleasant, no acute distress, answers questions appropriately - Head Head exam: Present: atraumatic, normocephalic - Eye Eye exam: Present: PERRL, conjuntiva pink, sclera anicteric Pupils: Present: PERRL - Neck Neck exam general surgery: Present: supple, trachea midline. Absent: lymphadenopathy - Respiratory Respiratory exam: Present: CTAB. Absent: accessory muscle use, rales, rhonchi, wheezes Additional comments: poor air entery overall, and no extra sounds appreciated - Cardiovascular Cardiovascular exam: Present: RRR, +S1, +S2. Absent: diastolic murmur, gallop, rubs, systolic murmur - GI/Abdominal GI/Abdominal exam: Present: normal bowel sounds, soft, no peritoneal signs. Absent: distended, tenderness - Extremities Exam Extremities exam: Present: pedal edema, warm, radial pulses palpable and symmetrical. Absent: calf tenderness, cyanotic, joint swelling - Neurological Exam Neurological exam: Present: CN II-XII intact, oriented X3, no focal deficits. Absent: pronater drift, facial droop, speech deficit - Skin Skin exam: Present: dry, intact Internal Medicine: Result - Labs CBC & Chem 7: 01/22/18 07:15 01/26/18 08:00 Labs: BMP 01/26/18 08:00 Sodium 139 Potassium 3.6 Chloride 102 Carbon Dioxide 34 H BUN 31 H Creatinine 2.02 H Glucose 89 Calcium 8.3 L - ABG Interpretation ABG results: PT/INR, D-dimer PT 12.1 Seconds (9.4-12.1) 01/21/18 06:55 - VTE Documentation of Mechanical Device: Graduated compression elastic hosiery Consult Discharge Plan - Plan Referrals: Des Gaona, PRINCIPAL QUALITY ENGINEER [Primary Care Provider] -
[2018-01-26] MEDS: Acetaminophen 325 MG TABLET PO SCH ×2 (18:32→22:30)
[2018-01-26] MEDS: Benzonatate 100 MG CAPSULE PO SCH (22:30)
[2018-01-27] MEDS: Albuterol 2.5 MG/3 ML NEBULIZER IH SCH ×6 (01:00→20:39)
[2018-01-27 07:10] LABS: Calcium 8.2 mg/dL (8.6-10.3); Potassium 3.5 mEq/L (3.5-5.1)
[2018-01-27 07:32] LABS: Basophils % 0.3 %; Eosinophils # 0.2 K/mcL (0.0-0.6); Eosinophils % 6.1 %; Hematocrit 25.8 % (37.5-50.1); Hemoglobin 8.2 g/dL (12.9-16.9); Immature Granulocytes % 0.3 % (0-4); Lymphocytes # 0.5 K/mcL (0.6-4.6); Lymphocytes % 13.4 %; Mean Corpuscular HGB Conc 31.8 g/dL (31.6-35.5); Mean Corpuscular Hemoglobin 30.8 pg (28.0-33.3); Mean Platelet Volume 10.8 fL (9.4-12.4); Monocytes # 0.4 K/mcL (0.0-1.3); Monocytes % 12.2 %; Neutrophils # 2.3 K/mcL (1.6-8.9); Platelet Count 197 K/mcL (140-400); Red Blood Count 2.66 M/mcL (4.19-5.50); Red Cell Distribution Width 16.3 % (11.5-14.5); Segmented Neutrophils % 67.7 %
[2018-01-27] MEDS: Diltiazem CD (24hr) 240 MG CAPSULE PO SCH (09:02)
[2018-01-27] MEDS: Benzonatate 100 MG CAPSULE PO SCH ×2 (09:02→20:33)
[2018-01-27] MEDS: Vitamin B Complex/Vit C/Vit E 1 EACH TABLET PO SCH (09:02)
[2018-01-27] MEDS: Folic Acid 1 MG TABLET PO SCH (09:02)
[2018-01-27] MEDS: *HR* Amiodarone 200 MG TABLET PO SCH (09:02)
[2018-01-27] MEDS: Bumetanide 1 MG TABLET PO SCH ×2 (09:02→16:02)
[2018-01-27] MEDS: Acetaminophen 325 MG TABLET PO SCH ×2 (09:02→16:03)
--- NOTE | 2018-01-27 10:18 | Internal Med Progress Note ---
Date of Encounter: 01/27/18 Time of Encounter: 10:15 - Assessment and plan (1) Acute decompensated heart failure Current Visit: Yes Status: Acute Assessment and plan: Patient appears relaxed while at rest but continues to have complaints of dyspnea during exertion of greater than 20 feet. Lungs are diminished throughout lower [place] and patient with complaints of a chronic dry cough. Chest x-ray was obtained which shows slight amount of pulmonary edema and atelectasis. Patient has shown a decrease of weight since his stated facility of greater than 7 kg. Oximetry remains greater than 90%. Noted moderate amount of generalized nonpitting edema. We will continue with current medications. Will continue with therapy (2) CKD (chronic kidney disease) Current Visit: Yes Status: Chronic Assessment and plan: No acute issues. Patient's creatinine is 2.23, which is a slight elevation from his admission labs. But, patient has had a decrease in weight of 7 kg since admission. Hemoglobin has dropped to 8.2.. Noted moderate amount of generalized edema. We will continue with daily weights. We will continue to monitor serial labs. Qualifiers: Chronic kidney disease stage: stage 4 (severe) Qualified Code(s): N18.4 - Chronic kidney disease, stage 4 (severe) (3) Hypertension Current Visit: Yes Status: Chronic Assessment and plan: No acute issues. Vital signs are stable. Patient's blood pressure is greater than 1:30 systolic on right, but noted large variance of blood pressure obtained from the left arm. Systolic blood pressure was greater than 80 on the left. We will continue with current medications. Qualifiers: Hypertension type: essential hypertension Qualified Code(s): I10 - Essential (primary) hypertension - Time Spent With Patient less than 15 minutes - Subjective Interval history: Patient appears relaxed and currently denies any discomforts or palpitations. Patient does state he continues to have slight dyspnea when ambulating greater than 20 feet. Respiratory effort appears relaxed while at rest. Patient had chest x-ray repeated this morning which shows possible mild ulnar edema with atelectasis. Patient denies any fever or chills. - Constitutional Vitals: Temp Pulse Resp BP Pulse Ox 97.4 F L 66 16 138/67 99 01/27/18 07:30 01/27/18 07:30 01/27/18 07:30 01/27/18 07:30 01/27/18 07:30 General appearance: Present: A&O X 3, pleasant, no acute distress, answers questions appropriately - Head Head exam: Present: atraumatic, normocephalic - Eye Eye exam: Present: PERRL, conjuntiva pink, sclera anicteric Pupils: Present: PERRL - Neck Neck exam general surgery: Present: supple, trachea midline. Absent: lymphadenopathy - Respiratory Respiratory exam: Present: CTAB, rales. Absent: accessory muscle use, rhonchi, wheezes Additional comments: Lungs clear throughout overfills but noted fine posterior bibasilar rales. - Cardiovascular Cardiovascular exam: Present: RRR, +S1, +S2, systolic murmur. Absent: diastolic murmur, gallop, rubs - GI/Abdominal GI/Abdominal exam: Present: normal bowel sounds, soft, no peritoneal signs. Absent: distended, tenderness - Additional comments: Luna catheter with clear urine output received - Extremities Exam Extremities exam: Present: warm, radial pulses palpable and symmetrical. Absent : calf tenderness, cyanotic, pedal edema Additional comments: Moderate generalized nonpitting edema. - Neurological Exam Neurological exam: Present: CN II-XII intact, oriented X3, no focal deficits. Absent: pronater drift, facial droop, speech deficit - Skin Skin exam: Present: dry, intact Internal Medicine: Result - Labs CBC & Chem 7: 01/27/18 06:39 01/27/18 06:39 Labs: Short CBC 01/27/18 Range/Units 06:39 WBC 3.4 L (4.3-11.1) K/mcL Hgb 8.2 L (12.9-16.9) g/dL Hct 25.8 L (37.5-50.1) % Plt Count 197 D (140-400) K/mcL Neutrophils # 2.3 (1.6-8.9) K/mcL BMP 01/27/18 06:39 Sodium 142 Potassium 3.5 Chloride 102 Carbon Dioxide 35 H BUN 29 H Creatinine 2.23 H Glucose 93 Calcium 8.2 L - ABG Interpretation ABG results: PT/INR, D-dimer PT 12.1 Seconds (9.4-12.1) 01/21/18 06:55 - Impressions Impressions Chest X-Ray 01/27/18 09:00 IMPRESSION: 1. Stable evidence of COPD. 2. Stable mild bilateral pleural effusions. 3. Stable perihilar and lower lobe opacities which may represent mild interstitial pulmonary edema and possible atelectasis. No lobar consolidation. D/ / 01/27/2018 07:31:38 Jae Frankel MD / johanna Interpreting Provider: Jae Frankel MD - VTE Documentation of Mechanical Device: Graduated compression elastic hosiery Consult Discharge Plan - Plan Referrals: Des Gaona, GUEST RELATIONS REPRESENTATIVE [Primary Care Provider] -
[2018-01-28] MEDS: Acetaminophen 325 MG TABLET PO SCH ×3 (00:10→16:12)
[2018-01-28] MEDS: Albuterol 2.5 MG/3 ML NEBULIZER IH SCH ×6 (00:12→20:52)
[2018-01-28 05:53] LABS: Basophils % 0.3 %; Eosinophils # 0.2 K/mcL (0.0-0.6); Eosinophils % 6.1 %; Hematocrit 24.6 % (37.5-50.1); Immature Granulocytes % 0.6 % (0-4); Lymphocytes # 0.5 K/mcL (0.6-4.6); Lymphocytes % 14.1 %; Mean Corpuscular HGB Conc 32.5 g/dL (31.6-35.5); Mean Corpuscular Hemoglobin 31.1 pg (28.0-33.3); Mean Corpuscular Volume 95.7 fL (83.0-100.0); Mean Platelet Volume 10.6 fL (9.4-12.4); Monocytes # 0.3 K/mcL (0.0-1.3); Monocytes % 8.6 %; Platelet Count 170 K/mcL (140-400); Red Blood Count 2.57 M/mcL (4.19-5.50); Red Cell Distribution Width 16.6 % (11.5-14.5); Segmented Neutrophils % 70.3 %
[2018-01-28 05:56] LABS: Neutrophils # 2.5 K/mcL (1.6-8.9)
[2018-01-28 06:12] LABS: Calcium 8.1 mg/dL (8.6-10.3); Potassium 3.4 mEq/L (3.5-5.1)
[2018-01-28] MEDS: Ascorbic Acid 500 MG TABLET PO SCH (08:34)
[2018-01-28] MEDS: Diltiazem CD (24hr) 240 MG CAPSULE PO SCH (08:34)
[2018-01-28] MEDS: Bumetanide 1 MG TABLET PO SCH ×2 (08:34→16:12)
[2018-01-28] MEDS: Vitamin B Complex/Vit C/Vit E 1 EACH TABLET PO SCH (08:35)
[2018-01-28] MEDS: Folic Acid 1 MG TABLET PO SCH (08:35)
[2018-01-28] MEDS: Benzonatate 100 MG CAPSULE PO SCH ×2 (08:35→20:50)
[2018-01-28] MEDS: *HR* Amiodarone 200 MG TABLET PO SCH (08:36)
--- NOTE | 2018-01-28 15:20 | Internal Med Progress Note ---
Date of Encounter: 01/28/18 Time of Encounter: 15:17 - Assessment and plan (1) Hypertension Current Visit: Yes Status: Chronic Assessment and plan: controlled with current meds. monitor BP Qualifiers: Hypertension type: essential hypertension Qualified Code(s): I10 - Essential (primary) hypertension (2) Atrial fibrillation Current Visit: Yes Status: Chronic Assessment and plan: rate and rythm stable. Qualifiers: Atrial fibrillation type: paroxysmal Qualified Code(s): I48.0 - Paroxysmal atrial fibrillation (3) CKD (chronic kidney disease) stage 4, GFR 15-29 ml/min Current Visit: Yes Status: Chronic Assessment and plan: repeat in am. (4) Systolic heart failure Current Visit: No Status: Acute Assessment and plan: continue diuretics and fluid restriction. Qualifiers: Heart failure chronicity: acute Qualified Code(s): I50.21 - Acute systolic (congestive) heart failure (5) Hypomagnesemia Current Visit: Yes Status: Acute Assessment and plan: mag sulfate 1 gram IV today. will repeat lab in am. - Time Spent With Patient less than 15 minutes - Subjective Interval history: sitting up in chair and participating well with therapy. denies chest pain, SOB , fever, chills, NVD. bowels moved today. russo cath draining. maintaining appetite and hydration. denies complaints of pain. - Constitutional Vitals: Temp Pulse Resp BP Pulse Ox 97.4 F L 70 17 131/61 98 01/28/18 07:13 01/28/18 07:13 01/27/18 19:44 01/28/18 07:13 01/28/18 07:13 General appearance: Present: A&O X 3, pleasant, no acute distress, answers questions appropriately - Head Head exam: Present: atraumatic, normocephalic - Eye Eye exam: Present: PERRL, conjuntiva pink, sclera anicteric Pupils: Present: PERRL - Neck Neck exam general surgery: Present: supple, trachea midline. Absent: lymphadenopathy - Respiratory Respiratory exam: Present: CTAB. Absent: accessory muscle use, rales, rhonchi, wheezes - Cardiovascular Cardiovascular exam: Present: RRR, +S1, +S2. Absent: diastolic murmur, gallop, rubs, systolic murmur - GI/Abdominal GI/Abdominal exam: Present: normal bowel sounds, soft, no peritoneal signs. Absent: distended, tenderness - Extremities Exam Extremities exam: Present: pedal edema, warm, radial pulses palpable and symmetrical. Absent: calf tenderness, cyanotic Additional comments: edema to bilat arms and hands and pedal area. - Neurological Exam Neurological exam: Present: CN II-XII intact, oriented X3, no focal deficits. Absent: pronater drift, facial droop, speech deficit - Skin Skin exam: Present: dry, intact Internal Medicine: Result - Labs CBC & Chem 7: 01/28/18 05:35 01/28/18 05:35 Labs: Short CBC 01/28/18 Range/Units 05:35 WBC 3.5 L (4.3-11.1) K/mcL Hgb 8.0 L (12.9-16.9) g/dL Hct 24.6 L (37.5-50.1) % Plt Count 170 (140-400) K/mcL Neutrophils # 2.5 (1.6-8.9) K/mcL BMP 01/28/18 05:35 Sodium 141 Potassium 3.4 L Chloride 103 Carbon Dioxide 33 H BUN 33 H Creatinine 2.19 H Glucose 90 Calcium 8.1 L - ABG Interpretation ABG results: PT/INR, D-dimer PT 12.1 Seconds (9.4-12.1) 01/21/18 06:55 - VTE Documentation of Mechanical Device: Graduated compression elastic hosiery Consult Discharge Plan - Plan Referrals: Des Gaona, MANAGER OUTREACH [Primary Care Provider] -
[2018-01-29] MEDS: Acetaminophen 325 MG TABLET PO SCH ×3 (00:41→16:41)
[2018-01-29] MEDS: Albuterol 2.5 MG/3 ML NEBULIZER IH SCH ×6 (00:42→21:00)
[2018-01-29] MEDS: Diltiazem CD (24hr) 240 MG CAPSULE PO SCH (10:16)
[2018-01-29] MEDS: Bumetanide 1 MG TABLET PO SCH ×2 (10:16→16:41)
[2018-01-29] MEDS: Vitamin B Complex/Vit C/Vit E 1 EACH TABLET PO SCH (10:17)
[2018-01-29] MEDS: Benzonatate 100 MG CAPSULE PO SCH (10:20)
[2018-01-29] MEDS: Folic Acid 1 MG TABLET PO SCH (10:21)
[2018-01-29] MEDS: Ascorbic Acid 500 MG TABLET PO SCH (10:22)
[2018-01-29] MEDS: *HR* Amiodarone 200 MG TABLET PO SCH (10:22)
--- NOTE | 2018-01-29 11:52 | Internal Med Progress Note ---
Date of Encounter: 01/29/18 Time of Encounter: 11:50 - Assessment and plan (1) Hypertension Current Visit: Yes Status: Chronic Assessment and plan: controlled with current meds. monitor BP. Qualifiers: Hypertension type: essential hypertension Qualified Code(s): I10 - Essential (primary) hypertension (2) Atrial fibrillation Current Visit: Yes Status: Chronic Assessment and plan: rate and rythm stable. continue current meds. Qualifiers: Atrial fibrillation type: paroxysmal Qualified Code(s): I48.0 - Paroxysmal atrial fibrillation (3) CKD (chronic kidney disease) stage 4, GFR 15-29 ml/min Current Visit: Yes Status: Chronic Assessment and plan: monitor CMP. (4) Systolic heart failure Current Visit: No Status: Acute Assessment and plan: continue diuretics and fluid restriction. Qualifiers: Heart failure chronicity: acute Qualified Code(s): I50.21 - Acute systolic (congestive) heart failure (5) Hypomagnesemia Current Visit: Yes Status: Acute Assessment and plan: mag level 1.6 today after 1 gram given per IV. will start mag ox 400mg BID and repeat level on 01/31. - Time Spent With Patient less than 15 minutes - Subjective Interval history: sitting up in chair and participating well with therapy. denies chest pain, SOB , fever, chills, NVD. bowels moved yesterday. russo cath draining. maintaining appetite and hydration. denies complaints of pain. maintaining O2 sats of 96% -100% with 2 liters per NC. - Constitutional Vitals: Temp Pulse Resp BP Pulse Ox 97.9 F 67 16 133/66 96 01/29/18 07:00 01/29/18 07:00 01/29/18 07:00 01/29/18 07:00 01/29/18 07:00 General appearance: Present: A&O X 3, pleasant, no acute distress, answers questions appropriately - Head Head exam: Present: atraumatic, normocephalic - Eye Eye exam: Present: PERRL, conjuntiva pink, sclera anicteric Pupils: Present: PERRL - Neck Neck exam general surgery: Present: supple, trachea midline. Absent: lymphadenopathy - Respiratory Respiratory exam: Present: CTAB. Absent: accessory muscle use, rales, rhonchi, wheezes - Cardiovascular Cardiovascular exam: Present: RRR, +S1, +S2. Absent: diastolic murmur, gallop, rubs, systolic murmur - GI/Abdominal GI/Abdominal exam: Present: normal bowel sounds, soft, no peritoneal signs. Absent: distended, tenderness - Extremities Exam Extremities exam: Present: pedal edema, warm, radial pulses palpable and symmetrical. Absent: calf tenderness, cyanotic Additional comments: bilat UE edema, mainly in hands. stable with yesterdays exam. - Neurological Exam Neurological exam: Present: CN II-XII intact, oriented X3, no focal deficits. Absent: pronater drift, facial droop, speech deficit - Skin Skin exam: Present: dry, intact Internal Medicine: Result - Labs CBC & Chem 7: 01/28/18 05:35 01/28/18 05:35 - ABG Interpretation ABG results: PT/INR, D-dimer PT 12.1 Seconds (9.4-12.1) 01/21/18 06:55 - VTE Documentation of Mechanical Device: Graduated compression elastic hosiery Consult Discharge Plan - Plan Referrals: Des Gaona, [employer] [Primary Care Provider] -
[2018-01-29] MEDS: Magnesium Oxide 400 MG TABLET PO SCH (13:03)
[2018-01-30] MEDS: Benzonatate 100 MG CAPSULE PO SCH ×3 (00:49→19:53)
[2018-01-30] MEDS: Magnesium Oxide 400 MG TABLET PO SCH ×3 (00:49→19:53)
[2018-01-30] MEDS: Albuterol 2.5 MG/3 ML NEBULIZER IH SCH ×6 (00:50→19:52)
[2018-01-30] MEDS: Acetaminophen 325 MG TABLET PO SCH ×3 (00:50→08:42)
[2018-01-30] MEDS: Ascorbic Acid 500 MG TABLET PO SCH (08:41)
[2018-01-30] MEDS: Folic Acid 1 MG TABLET PO SCH (08:42)
[2018-01-30] MEDS: Bumetanide 1 MG TABLET PO SCH ×2 (08:42→16:27)
[2018-01-30] MEDS: Vitamin B Complex/Vit C/Vit E 1 EACH TABLET PO SCH (08:42)
[2018-01-30] MEDS: *HR* Amiodarone 200 MG TABLET PO SCH (08:43)
[2018-01-30] MEDS: Diltiazem CD (24hr) 240 MG CAPSULE PO SCH (08:43)
--- NOTE | 2018-01-30 17:02 | Internal Med Progress Note ---
Date of Encounter: 01/30/18 Time of Encounter: 17:00 - Assessment and plan (1) Acute decompensated heart failure Current Visit: Yes Status: Acute Assessment and plan: Patient appears relaxed while at rest but continues to have complaints of dyspnea during exertion of greater than 20 feet. Lungs are diminished throughout lower [place] and patient with complaints of a chronic dry cough. Noted moderate amount of generalized nonpitting edema. We will continue with current medications. Will continue with therapy (2) CKD (chronic kidney disease) Current Visit: Yes Status: Chronic Assessment and plan: No acute issues. Patient's creatinine is 2.19, which is a slight elevation from his admission labs. But, patient has had a decrease in weight of 7 kg since admission. Noted moderate amount of generalized edema. We will continue with daily weights. We will continue to monitor serial labs. Qualifiers: Chronic kidney disease stage: stage 4 (severe) Qualified Code(s): N18.4 - Chronic kidney disease, stage 4 (severe) (3) Hypertension Current Visit: Yes Status: Chronic Assessment and plan: No acute issues. Vital signs are stable. We will continue with current medications. Qualifiers: Hypertension type: essential hypertension Qualified Code(s): I10 - Essential (primary) hypertension - Subjective Interval history: Patient appears relaxed and currently denies any discomforts or palpitations. Patient does state he continues to have slight dyspnea when ambulating greater than 20 feet. Respiratory effort appears relaxed while at rest. Patient denies any fever or chills. - Constitutional Vitals: Temp Pulse Resp BP Pulse Ox 97.6 F 66 16 151/70 99 01/30/18 08:00 01/30/18 08:00 01/30/18 08:00 01/30/18 08:00 01/30/18 11:00 General appearance: Present: A&O X 3, pleasant, no acute distress, answers questions appropriately - Head Head exam: Present: atraumatic, normocephalic - Eye Eye exam: Present: PERRL, conjuntiva pink, sclera anicteric Pupils: Present: PERRL - Neck Neck exam general surgery: Present: supple, trachea midline. Absent: lymphadenopathy - Respiratory Respiratory exam: Present: CTAB. Absent: accessory muscle use, rales, rhonchi, wheezes Additional comments: CTA with diminished breath sounds to the bases. - Cardiovascular Cardiovascular exam: Present: RRR, +S1, +S2. Absent: diastolic murmur, gallop, rubs, systolic murmur - GI/Abdominal GI/Abdominal exam: Present: normal bowel sounds, soft, no peritoneal signs. Absent: distended, tenderness - Extremities Exam Extremities exam: Present: pedal edema, warm, radial pulses palpable and symmetrical. Absent: calf tenderness, cyanotic - Neurological Exam Neurological exam: Present: CN II-XII intact, oriented X3, no focal deficits. Absent: pronater drift, facial droop, speech deficit - Skin Skin exam: Present: dry, intact Internal Medicine: Result - Labs CBC & Chem 7: 01/28/18 05:35 01/28/18 05:35 - ABG Interpretation ABG results: PT/INR, D-dimer PT 12.1 Seconds (9.4-12.1) 01/21/18 06:55 - VTE Documentation of Mechanical Device: Graduated compression elastic hosiery Consult Discharge Plan - Plan Referrals: cat [facility] [Other] - 02/13/18 2:00 pm Ari Alarcon DO [Partnered Physician] - 04/11/18 2:45 pm (follow up appointment) Vikram Zabala MD [Partnered Physician] - 02/05/18 1:15 pm (follow up with urology) Des Gaona CNP [Primary Care Provider] - 02/07/18 9:20 am (follow [facility] with [facility])
[2018-01-31] MEDS: Albuterol 2.5 MG/3 ML NEBULIZER IH SCH ×4 (00:46→11:49)
[2018-01-31 08:31] VITALS: BP 138/78
[2018-01-31] MEDS: Bumetanide 1 MG TABLET PO SCH (09:09)
[2018-01-31] MEDS: Ascorbic Acid 500 MG TABLET PO SCH (09:10)
[2018-01-31] MEDS: Diltiazem CD (24hr) 240 MG CAPSULE PO SCH (09:10)
[2018-01-31] MEDS: Benzonatate 100 MG CAPSULE PO SCH (09:10)
[2018-01-31] MEDS: Vitamin B Complex/Vit C/Vit E 1 EACH TABLET PO SCH (09:10)
[2018-01-31] MEDS: Folic Acid 1 MG TABLET PO SCH (09:10)
[2018-01-31] MEDS: *HR* Amiodarone 200 MG TABLET PO SCH (09:10)
[2018-01-31] MEDS: Magnesium Oxide 400 MG TABLET PO SCH (09:10)
--- NOTE | 2018-01-31 11:46 | Discharge Summary ---
Orders not resulted at time of discharge: Pending orders 01/31/18 11:19 Basic Metabolic Panel Routine 02/03/18 04:00 BMP [Basic Metabolic Panel] MO Complete Blood Count [HEME] MO 02/10/18 04:00 BMP [Basic Metabolic Panel] MO Complete Blood Count [HEME] MO 02/17/18 04:00 BMP [Basic Metabolic Panel] MO Complete Blood Count [HEME] MO 02/24/18 04:00 BMP [Basic Metabolic Panel] MO Complete Blood Count [HEME] MO 03/03/18 04:00 BMP [Basic Metabolic Panel] MO Complete Blood Count [HEME] MO 03/10/18 04:00 BMP [Basic Metabolic Panel] MO Complete Blood Count [HEME] MO 03/17/18 04:00 BMP [Basic Metabolic Panel] MO Complete Blood Count [HEME] MO 03/24/18 04:00 BMP [Basic Metabolic Panel] MO Complete Blood Count [HEME] MO 03/31/18 04:00 BMP [Basic Metabolic Panel] MO Complete Blood Count [HEME] MO Date of Encounter: 01/31/18 Time of Encounter: 11:43 - Discharge Diagnosis (1) Acute decompensated heart failure Priority: Primary Status: Acute Comments: Patient has progressed well during his stay in facility. Patient remained without complaints of chest discomforts or palpitations. monitor worker showed atrial fibrillation with occasional PVCs. Vital signs have remained stable. Patient showed no signs of exacerbation or decompensation of his CHF patient to continue with follow-up with cardiology. Patient continue with current medications at home (2) CKD (chronic kidney disease) Priority: Secondary Status: Chronic Comments: No acute issues during hospital stay. Patient to follow-up with nephrology after discharge and to continue with current medications Qualifiers: Chronic kidney disease stage: stage 4 (severe) Qualified Code(s): N18.4 - Chronic kidney disease, stage 4 (severe) (3) Hypertension Priority: Secondary Status: Chronic Comments: Vital signs remained stable during his stay. Patient to continue with current medications at home Qualifiers: Hypertension type: essential hypertension Qualified Code(s): I10 - Essential (primary) hypertension Hospital course: Mr. Engle is a 82 year old male who was admitted from [facility] after an admission for a G.I. bleed. Patient had an irregular heart rhythm without pulse shortly after arrival in ICU, where he was coded in cardiac arrest at 3 different episodes. Patient given 6 unit of blood. Was also treated with antibiotics for Pseudomonas pneumonia echocardiogram shows ejection fraction a 50% with some mild LV systolic dysfunction. past medical history includes: NSTEMI, acute decompensated heart failure, see CKD stage for work, hypertension , respiratory failure, acute coronary syndrome, a fib, systolic heart failure, systemic inflammatory response syndrome, diabetes type II, BPH, urinary retention, pneumonia, ischemic cardiomyopathy, COPD, cardiac arrest, G.I. bleed , CAD, metabolic alkalosis, arrhythmia, renal mass, duodenal ulcer. Patient was admitted to this facility for further strengthening due to decompensation after extended recovery from cardiac arrest and CHF. Patient has progressed well with physical therapy during his stay at this facility. No further signs of GI bleed or symptoms of exacerbation of CHF were experienced during his stay. Patient continues to have unsteady gait and requires use of assistive device for ambulation and transfers. Patient also diagnosed with obstructive sleep apnea during his stay at the hospital and will follow-up as an outpatient for a sleep study. Arrangements have been made. Patient is to continue with current medications. Patient to follow-up with cardiology, nephrology and PCP after discharge. Discharge discussed with: patient Time spent discussing smoking cessation with patient: 3 to 10 minutes - Time Spent with Patient Total time spent providing and/or coordinating discharge services: Less than 30 minutes - Discharge Medications Prescriptions: Amiodarone [Cordarone] 200 mg PO DAILY #30 tablet Benzonatate [Tessalon] 200 mg PO TID #60 capsule Benzonatate [Tessalon] 200 mg PO BID #60 capsule Bumetanide [Bumex] 2 mg PO NOW #60 tablet Bumetanide [Bumex] 2 mg PO BIDDIURETIC #60 tablet Cholecalciferol (Vitamin D3) [Vitamin D3] 50,000 unit PO TH #10 capsule Diltiazem CD (24hr) [Cardizem CD] 240 mg PO DAILY #30 cap.er.24h Docusate [Colace] 200 mg PO BID PRN #60 capsule PRN Reason: Constipation Ferrous Sulfate 325 mg PO DAILY@0800 #60 tablet Folic Acid 1 mg PO DAILY #30 tablet GuaiFENesin ER [Mucinex] 600 mg PO BID #60 tbbp.12hr Magnesium Oxide [Mag-Ox] 400 mg PO BID #60 tablet Metoprolol Tartrate [Lopressor] 50 mg PO BID #60 tablet Pantoprazole Sodium 40 mg PO BID #60 tablet. Sucralfate [Carafate] 1 gm PO ACHS #120 udc Sucralfate [Carafate] 1 gm PO ACHS #120 udc Tamsulosin [Flomax] 0.4 mg PO DAILY #30 capsule Zolpidem [Ambien] 5 mg PO HS PRN 30 Days #30 tablet MDD 5mg PRN Reason: Insomnia Home Medications: Albuterol Neb [Proventil Neb] 2.5 mg IH Q4-6H PRN 12/31/17 [History] Albuterol Sulfate [Proair Hfa] 1 puff IH DAILY PRN 12/31/17 [History] Atorvastatin [Lipitor] 40 mg PO HS 12/31/17 [History] Bisacodyl [Woman's Laxative] 5 mg PO DAILY PRN 12/31/17 [History] Vitamin B Complex [B Complex] 1 tab PO DAILY 12/31/17 [History] Acetaminophen [Tylenol] 650 mg PO Q8HR tablet 01/31/18 [Rx] Albuterol Neb [Proventil Neb] 2.5 mg IH [id number] inhsol 01/31/18 [Rx] Amiodarone [Cordarone] 200 mg PO DAILY #30 tablet 01/31/18 [Rx] Ascorbic Acid [Vitamin C] 500 mg PO DAILY tablet 01/31/18 [Rx] Benzonatate [Tessalon] 200 mg PO BID #60 capsule 01/31/18 [Rx] Benzonatate [Tessalon] 200 mg PO TID #60 capsule 01/31/18 [Rx] Bumetanide [Bumex] 2 mg PO BIDDIURETIC #60 tablet 01/31/18 [Rx] Bumetanide [Bumex] 2 mg PO NOW #60 tablet 01/31/18 [Rx] Calcium Carbonate [Tums] 1,000 mg PO Q4H PRN tab.chew 01/31/18 [Rx] Cholecalciferol (Vitamin D3) [Vitamin D3] 50,000 unit PO TH #10 capsule [Rx] Diltiazem CD (24hr) [Cardizem CD] 240 mg PO DAILY #30 cap.er.24h 01/31/18 [Rx] Docusate [Colace] 200 mg PO BID PRN #60 capsule 01/31/18 [Rx] Ferrous Sulfate 325 mg PO DAILY@0800 #60 tablet 01/31/18 [Rx] Folic Acid 1 mg PO DAILY #30 tablet 01/31/18 [Rx] GuaiFENesin ER [Mucinex] 600 mg PO BID #60 tbbp.12hr 01/31/18 [Rx] Magnesium Oxide [Mag-Ox] 400 mg PO BID #60 tablet 01/31/18 [Rx] Metoprolol Tartrate [Lopressor] 50 mg PO BID #60 tablet 01/31/18 [Rx] Pantoprazole Sodium 40 mg PO BID #60 tablet. 01/31/18 [Rx] Sucralfate [Carafate] 1 gm PO ACHS #120 udc 01/31/18 [Rx] Sucralfate [Carafate] 1 gm PO ACHS #120 udc 01/31/18 [Rx] Tamsulosin [Flomax] 0.4 mg PO DAILY #30 capsule 01/31/18 [Rx] Zolpidem [Ambien] 5 mg PO HS PRN 30 Days #30 tablet MDD 5mg 01/31/18 [Rx] Allergies/Adverse Reactions: 3 Allergy/AdvReac Type Severity Reaction Status Date / Time Beta-Blockers AdvReac See Verified 01/06/18 15:36 (Beta-Adrenergic Bloc Comments codeine AdvReac Nausea Verified 01/06/18 15:36 Date of admission: 01/20/18 17:21 Primary care physician: Des Gaona CNP Consults: 01/20/18 19:47 Consult to Occupational Therapy [CONS] Routine Comment: Evaluate, develop and implement POC Reason for Consult: swing bed- pt on tele Does patient have active BEDREST order?: No Is patient medically & hemodynamically stable?: Yes Patient assessed for mobility or mobilized this visit?: No Consult to Physical Medicine/Rehab [CONS] Routine Reason for Consult: Please evaluate and manage therapies' guidelines and recommend pathway to reconditioning. Call Completed: No Consult to Physical Therapy [CONS] Routine Comment: Evaluate, develop and implement POC Reason for Consult: swing bed- pt on tele Does patient have active BEDREST order?: No Is patient medically & hemodynamically stable?: Yes Patient assessed for mobility or mobilized this visit?: No Consult to Laborer [place] [CONS] Routine Reason for SW Consult: Please evaluate for home situation and discharge planning 01/20/18 19:50 Consult to Recreational Therapy [CONS] Routine Comment: Consult to Speech Therapy [CONS] Routine Comment: Evaluate, develop and implement POC Reason for Consult: [facility] soft diet Call Completed: No 01/25/18 15:05 Consult to Wound Care [CONS] Routine Reason for Consult: multiple wounds, poor protein levels, weeping edema on rue. Call Completed: Yes Discharging clinician: Lars Flores Anticipated date of discharge: 01/31/18 - Constitutional Vitals: Temp Pulse Resp BP Pulse Ox 97.7 F 75 16 138/78 100 01/31/18 08:30 01/31/18 08:30 01/31/18 08:30 01/31/18 08:30 01/31/18 10:03 General appearance: Present: A&O X 3, pleasant, no acute distress, answers questions appropriately - Head Head exam: Present: atraumatic, normocephalic - Eye Eye exam: Present: PERRL, conjuntiva pink, sclera anicteric Pupils: Present: PERRL - Neck Neck exam general surgery: Present: supple, trachea midline. Absent: lymphadenopathy - Respiratory Respiratory exam: Present: CTAB. Absent: accessory muscle use, rales, rhonchi, wheezes Additional comments: Lungs are clear throughout upper [place] and noted fine posterior bibasilar rales. Respiratory effort appears relaxed. - Cardiovascular Cardiovascular exam: Present: irregular rhythm, RRR, +S1, +S2. Absent: diastolic murmur, gallop, rubs, systolic murmur - GI/Abdominal GI/Abdominal exam: Present: normal bowel sounds, soft, no peritoneal signs. Absent: distended, tenderness - Extremities Exam Extremities exam: Present: pedal edema, warm, radial pulses palpable and symmetrical. Absent: calf tenderness, cyanotic Additional comments: Slight nonpitting pedal edema - Neurological Exam Neurological exam: Present: CN II-XII intact, oriented X3, no focal deficits. 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
[2018-01-31 15:36] LABS: Calcium 8.5 mg/dL (8.6-10.3); Potassium 4.3 mEq/L (3.5-5.1)
== END 2018-01-31 15:30 | disposition home health service (06) | DRG 945 ==
LOC: INPGRE → OBSVTOIN 17:21